=== PATIENT | male | born 1995 | race Caucasian/White ===

== ENCOUNTER 2019-11-22 09:38 | Emergency (ER) | payer MEDICARE, MEDICAID ==
[~2019-11-22] VITALS: Ht 152.4 cm; Wt 40.8 kg
[~2019-11-22 09:38] MED LIST: ADULT AEROSOL1 EACH MC; ADVAIR 250-501 EACH IH; ALBUTEROL2.5 MG/32 IH; ATROPINE 1%1 %/2 M1 OP; AZITHROMYCIN 2250 MG PO; CARBITOL; MEDROLDOSEPACK PO; MIRALAX255 GM; NASONEX; NORTRIPTYLINE H10 M1 GT; OXYBUTYNIN 5 MG5 M1 GT; PREDNISONE 20 M20 MG PO; RESPIRADOL; SINGULAIR5 MG PO; TEGRETOL XR100 MG PO; XOPENEX HF1 UDINHALE IH; ZYRTEC10 M1 PO; [UNRECOGNIZED DRUG - OTHER]
[2019-11-22] MEDS ORDERED: BENEFIBER1 EAC1 PO (09:55)
[2019-11-22] MEDS ORDERED: LORATIDINE 10 M10 M1 PO (09:57)
[2019-11-22] MEDS ORDERED: ESCITALOPRA5 MG/5 ML PO (09:57)
[2019-11-22] MEDS ORDERED: GENTLE LAXATIVE5 M1 PO (09:57)
[2019-11-22] MEDS ORDERED: MONTELUKAST SODI4 M1 PO (09:57)
[2019-11-22] MEDS ORDERED: VITAMIN D31250 MC1 PO (09:58)
[2019-11-22] MEDS ORDERED: PRAZOSIN 1 MG CA1 M1 PO (09:58)
[2019-11-22] MEDS ORDERED: ZONEGRAN100 MG PO (09:58)
[2019-11-22] MEDS ORDERED: KEPPRA XR500 MG PO (09:59)
[2019-11-22] MEDS ORDERED: FLOVENT DISKU250 MCG INH (09:59)
[2019-11-22] MEDS ORDERED: LOXAPINE50 MG PO (10:00)
[2019-11-22] MEDS ORDERED: CLONAZEPAM2 MG PO (10:00)
[2019-11-22] MEDS ORDERED: NEURONTIN 300M300 M2 PO (10:00)
[2019-11-22] MEDS ORDERED: DIPHENHIST50 MG PO (10:00)
[2019-11-22] MEDS ORDERED: FLONASE 0.05%50 MCG NARES (10:01)
[2019-11-22] MEDS ORDERED: OLOPATADINE HC2.5 ML OPHTHALMIC (10:02)
[2019-11-22] MEDS ORDERED: GAVILAX17 GM PO (10:02)
[2019-11-22] MEDS ORDERED: VENTOLIN HFA 1818 GM INH (10:03)
[2019-11-22 10:36] VITALS: BP 123/81
== END 2019-11-22 10:37 | disposition home or self-care (01) ==
LOC: M.ERS 09:38
DX: S01.112A Laceration without foreign body of left eyelid and periocular area, initial encounter (principal); J45.909 Unspecified asthma, uncomplicated; G40.909 Epilepsy, unspecified, not intractable, without status epilepticus; G93.40 Encephalopathy, unspecified; Z79.899 Other long term (current) drug therapy; W25.XXXA Contact with sharp glass, initial encounter; Y93.89 Activity, other specified; Y92.89 Other specified places as the place of occurrence of the external cause; Y99.8 Other external cause status